=== PATIENT | male | born 1990 | race Two or more races ===

== ENCOUNTER 2016-07-25 22:42 | Emergency (ER) | payer SELFPAY ==
[~2016-07-25] VITALS: Ht 170.2 cm; Wt 63.5 kg
[2016-07-25] MEDS ORDERED: NKM (22:48)
[2016-07-25] MEDS ORDERED: Surgicel 4in x 8in TOPIC ONE (23:00)
[2016-07-25] MEDS ORDERED: TdaP Vaccine 0.5ml Syr IM ONE (23:00)
[2016-07-25] MEDS ORDERED: IBUPROFEN600 MG ORAL (23:10)
[2016-07-25] MEDS ORDERED: KEFLEX500 MG ORAL (23:10)
--- NOTE | 2016-07-25 23:11 | Emergency Room Report ---
History of Present Illness General Chief Complaint: Laceration Source: Patient, Friend Present Illness HPI This is a 26-year-old male who is right-hand dominant. He present with a laceration to his left ring finger. This occurred just prior to arrival. He and his friend was cutting something. He was holding the product and his friend trying to cut it. He slipped and avulsed the tip of his finger. It was bleeding profusely. Patient soaked his hand in hinkle to stop the bleeding. No other complaint. Bleeding is controlled. Moderate pain. Allergies: Coded Allergies: No Known Allergies (Unverified , 07/25/16) Patient History Past Medical History: none, see triage record, old chart reviewed Past Surgical History: none Pertinent Family History: none Social History: Reports: smoking Immunizations: other Reviewed Nursing Documentation: PMH: Agreed, PSxH: Agreed Nursing Documentation-PMH Past Medical History: No Stated History Review of Systems Eye: Denies: blurred vision, eye pain ENT: Denies: ear pain, nose congestion, throat swelling Respiratory: Denies: cough, shortness of breath Cardiovascular: Denies: chest pain, palpitations Gastrointestinal: Denies: abdominal pain, diarrhea, nausea, vomiting Musculoskeletal: Denies: back pain, joint pain Skin: Denies: rash Neurological: Denies: headache, numbness Endocrine: Denies: increased thirst, increased urine Hematologic/Lymphatic: Denies: easy bruising All Other Systems: negative except mentioned in HPI Physical Exam Vital Signs Date Time Temp Pulse Resp B/P Pulse Ox O2 Delivery O2 Flow Rate FiO2 07/25/16 22:43 97.9 76 18 115/70 99 Room Air vitals normal Sp02 EP Interpretation: reviewed, normal General Appearance: well appearing, no apparent distress, alert Head: normocephalic, atraumatic Eyes: bilateral eye EOMI, bilateral eye PERRL ENT: hearing grossly normal, normal pharynx Neck: full range of motion, supple, no meningismus Respiratory: chest non-tender, lungs clear, normal breath sounds Cardiovascular #1: regular rate, rhythm, no murmur Gastrointestinal: normal bowel sounds, non tender, no mass, no organomegaly, no bruit, non-distended Musculoskeletal: back normal, gait/station normal, normal range of motion, other - His left hand is literally caked in hinkle powder. No active bleeding. After cleaning off, I was able to access the injury. He has a 1 cm avulsion of the nail not involving the base. There is oozing of blood from the nail bed. Full range of motion of the MCP, PIP and DIP joint of the left fourth finger. Neurovascularly intact. Sensation normal. Neurologic: alert, oriented x3 Psychiatric: mood/affect normal Skin: warm/dry Procedures Laceration/Wound Repair Laceration/Wound Repair : Consent: Verbal Wound Location: upper extremity Wound's Depth, Shape: nail-avulsed Wound Length (cm): 1 Wound Explored: contaminated Irrigated w/ Saline (ccs): 1000 Anesthesia: 1% Lidocaine Volume Anesthetic (ccs): 2 Sterile Dressing Applied?: Yes Patient Tolerated: Well Complications: None Progress I did a digital block with 1% lidocaine without epinephrine. After good anesthesia I cleaned the hand. Remove all caked on hinkle powder. There is nothing to be sutured. Medical Decision Making Diagnostic Impression: Primary Impression: Nail avulsion, finger Qualified Codes: S61.309A - Unspecified open wound of unspecified finger with damage to nail, initial encounter ER Course Patient with fingernail and nailbed injury. Tetanus updated. We will put him on antibiotics. No foreign body or fracture. No tendon laceration. Last Vital Signs Date Time Temp Pulse Resp B/P Pulse Ox O2 Delivery O2 Flow Rate FiO2 07/25/16 22:43 97.9 76 18 115/70 99 Room Air Status: improved Disposition: HOME, SELF-CARE Condition: Stable Scripts Ibuprofen* (MOTRIN*) 600 Mg Tablet 600 MG ORAL THREE TIMES A DAY, #30 TAB 0 Refills Prov: POOL MELENDEZ M.D. 07/25/16 Cephalexin* (KEFLEX*) 500 Mg Capsule 500 MG ORAL TID, #21 CAP 0 Refills Prov: POOL MELENDEZ M.D. 07/25/16 Patient Instructions: Nonsutured Laceration Care Additional Instructions: Keep wound clean. Pressure if bleeding. Followup with your DrJaja in 7 days. Return if worse. POOL MELENDEZ M.D. Jul 25, 2016 23:11
[2016-07-25 23:14] VITALS: BP 115/70
[2016-07-25 23:21] VITALS: BP 115/70
== END 2016-07-25 23:22 | disposition home or self-care (01) ==
LOC: EMR 22:59
DX: S61.305A Unspecified open wound of left ring finger with damage to nail, initial encounter (principal); W45.8XXA Other foreign body or object entering through skin, initial encounter; Y92.89 Other specified places as the place of occurrence of the external cause; Z23 Encounter for immunization; F17.200 Nicotine dependence, unspecified, uncomplicated
CPT/HCPCS: 90471; 90715; 99284